=== PATIENT | female | born 1965 | race Caucasian/White ===

== ENCOUNTER 2022-10-03 18:58 | Emergency (ER) | payer OTHER, SELFPAY ==
[2022-10-03 19:07] VITALS: BP 189/101; PULSE 61; RESP 18; TEMP 36.4; O2SAT 98
--- NOTE | 2022-10-03 19:16 | ED_ITS ---
HPI - Extremity Problem General: Chief complaint: Extremity Injury, Upper Stated complaint: right pinky injury Time Seen by Provider: 10/03/22 19:15 History of Present Illness: Patient is a 57-year-old female who comes to the ED with left hand pinky injury. Injury occurred a couple hours prior to arrival. Patient says she was outside and going to step up into her shed. The concrete block that acts as a step to step up into shed shifted when she stepped on it and she fell off to the side. She was able to catch herself on the door door frame with her left hand which caused injury to pinky finger. She has 5 out of 10 pain in her pinky finger and it is laterally dislocated at PIP joint. No head trauma or loss of consciousness. Denies any other injury. Patient took a tramadol at around 3:00 PM today. Associated symptoms: Deny chest pain, fever(s) or rash Review of Systems Const: Denies: fever(s), chills or fatigue Eyes: Denies: change in vision or eye discomfort ENMT: Denies: throat pain, odynophagia, nasal discharge or nasal congestion Card: Denies: chest pain, palpitations, edema, swelling of feet/ankles, dyspnea on exertion or orthopnea Resp: Denies: dyspnea, productive cough or non-productive cough GI: Denies: abdominal pain, nausea, vomiting, diarrhea, constipation or hematochezia : Denies: flank pain, dysuria or hematuria Musc: Reports: extremity pain (Left hand-pinky finger); Denies: neck pain, back pain or extremity swelling Skin/Breast: Denies: rash or new lesions Neuro: Denies: headache(s), numbness in extremities or weakness in extremities [facility] ED PFSH: Medical History No pertinent family history No pertinent past medical history Physical Exam Const: COMMON NORMALS: patient oriented x3 and alert HENMT: COMMON NORMALS: normocephalic HEAD & SCALP: normocephalic MOUTH: Normal oral and palatal mucosa present THROAT: posterior oropharynx normal and uvula midline Neck/C-Spine: COMMON NORMALS: supple GENERAL: Yes normal visual inspection Resp: COMMON NORMALS: normal respiratory effort, No retractions, No use of accessory muscles and clear to auscultation bilaterally AUSCULTATION: clear to auscultation bilaterally Cardio: COMMON NORMALS: regular rate, regular rhythm, S1 normal heart sound present, S2 normal heart sound present, No gallops present (Cardio), No clicks present (Cardio), No murmurs present (Cardio) and Peripheral pulses 2+ throughout RATE: regular rate RHYTHM: regular rhythm HEART SOUNDS: S1 normal heart sound present and S2 normal heart sound present PERIPHERAL PULSES: Peripheral pulses 2+ throughout GI: COMMON NORMALS: Normal to inspection, nondistended, normoactive bowel sounds present, Soft to palpation, non-tender and no masses PALPATION: Yes Soft to palpation : COMMON NORMALS: Yes no CVA tenderness BLADDER/KIDNEY EXAM: Yes no CVA tenderness Back/Pelvis: COMMON NORMALS: no CVA tenderness Extremity: NARRATIVE EXTREMITY EXAM: Left hand?fifth digit?deformity seen. Lateral dislocation at PIP joint. Neurovascular intact distally. Cap refill normal less then 2 seconds. Neuro: COMMON NORMALS: patient oriented x3 SENSORIUM/ORIENTATION: Yes alert GAIT: Yes Normal gait present Skin: GENERAL SKIN EXAM: dry skin Procedures Nerve Block Nerve Block 1: Time out performed: Yes Local Anesthetic: lidocaine 2% Amount of anesthesia used (mL): 5 Side: left Nerve Blocks: digital (Fifth digit) Procedure Successful: Yes Patient Tolerated Procedure: well Complications: none Orthopedic Joint Reduction Joint #1: Time Out Performed: Yes Side: left Joint Reduction Location: finger (Fifth finger) Analgesia: nerve block (Lidocaine 2% digital block) Amount of anesthesic used (mL): 5 Technique used: direct manipulation Post-reduction neuro exam: intact Post-reduction vascular: intact Post Reduction X-Ray Obtained: Yes Post Reduction X-Ray Results: reduced Splint Applied: Yes (Henrik tape) Patient Tolerated Procedure: well Course Vital Signs: Vital signs: Vital Signs Temperature 97.5 F L 10/03/22 19:07 Pulse Rate 48 L 10/03/22 20:41 Respiratory Rate 16 10/03/22 20:41 Blood Pressure 164/74 10/03/22 20:41 Pulse Oximetry 98 10/03/22 20:41 Oxygen Delivery Me thod Room Air 10/03/22 19:36 MDM - Extremity (Nontraumatic) Medical Decision Making Patient is a 57-year-old female who comes to the ED with left hand pinky injury. Injury occurred a couple hours prior to arrival. Patient says she was outside and going to step up into her shed. The concrete block that acts as a step to step up into shed shifted when she stepped on it and she fell off to the side. She was able to catch herself on the door door frame with her left hand which caused injury to pinky finger. She has 5 out of 10 pain in her pinky finger and it is laterally dislocated at PIP joint. No head trauma or loss of consciousness. Denies any other injury. Patient took a tramadol at around 3:00 PM today. Vital stable. Left hand?fifth digit?deformity seen. Lateral dislocation at PIP joint. Neurovascular intact distally. Cap refill normal less then 2 seconds. X-ray of left hand shows dislocation of fifth digit PIP joint. Lidocaine 2% was used for digital block. Finger dislocation was reduced using manual manipulation. Postreduction x-rays showed successful reduction of dislocation of fifth joint. Patient was put in a finger splint and I placed an order with case management for patient to be referred to Ortho for follow-up. Return to ED precautions given. Patient understood and agreed with plan. Lab Data Radiology Impressions Hand X-Ray 10/03/22 20:06 IMPRESSION: Successful reduction of the dislocation at the 5th PIP joint space. Discharge Plan Discharge Patient Disposition: Home Clinical Impression: Dislocation of finger Qualifiers: Encounter type: initial encounter Qualified Code(s): S63.259A - Unspecified dislocation of unspecified finger, initial encounter Condition: Stable Discharge Orders: Discharge ED (Routine); Ordered 10/03/22 Ordered By: Lorne Tello Referrals: Carlos Alberto Dalton RN [Referring] - Discharge Diet: Regular Discharge Activity: Limit activity as instructed Patient Instructions: Dislocation - Finger Activity Restrictions/Additional Instructions: Follow-up with medical provider as directed. Case management should be contacted in the next several days to set up an appoint with Ortho for follow-up on finger dislocation. Continue taking all home medications as previously prescribed. You can wear finger splint, but after 2 days you can take finger out of splint and do some range of motion exercises and it throughout the day. Return to the ER or your medical provider if condition worsens. Please read and understand discharge instructions. Thank you for choosing [facility] for your healthcare needs today. Please realize this is an emergency room and that we are providing you with a medical screening exam and this may not be complete and all inclusive of all the testing and or work up that you may need to determine your ailment or severity of your illness. It is very important that you follow up as instructed or that you return to the Emergency Department should you have concerns or if your condition changes or worsens in any way. Coding Level of Care Code ED [employer] Worker for Nila Giraldo
--- NOTE | 2022-10-03 19:24 | XRR_ITS ---
PROCEDURE INFORMATION: Exam: XR Left Hand Exam date and time: 10/03/2022 7:25 PM Age: 57 years old Clinical indication: Injury or trauma; Fall; Dislocation; Little finger; Patient HX: Patient tripped and fell against door at home. Obvious deformity to left 5th digit. ; Additional info: Left hand pinky injury TECHNIQUE: Imaging protocol: Radiologic exam of the left hand. Views: 3 or more views. COMPARISON: No relevant prior studies available. FINDINGS: Bones/joints: Dislocation of the 5th PIP joint space. No evidence of fracture. Soft tissues: Normal. XR/XR hand LT min 3V* [id number] IMPRESSION: Dislocation of the 5th PIP joint space.
[2022-10-03 19:36] VITALS: BP 196/118; PULSE 57; RESP 16; O2SAT 94
--- NOTE | 2022-10-03 20:06 | XRR_ITS ---
PROCEDURE INFORMATION: Exam: XR Left Hand Exam date and time: 10/03/2022 8:16 PM Age: 57 years old Clinical indication: Injury or trauma; Fall; Other: Lt pinky; Dislocation; Left; Little finger; Injury details: Post red; Additional info: Post reduction xrays TECHNIQUE: Imaging protocol: Radiologic exam of the left hand. Views: 3 or more views. COMPARISON: CR XR hand LT min 3V* [id number] 10/03/2022 7:25 PM FINDINGS: Bones/joints: Successful reduction of the dislocation at the 5th PIP joint space. Negative for fracture. Soft tissues: Normal. XR/XR hand LT min 3V* [id number] IMPRESSION: Successful reduction of the dislocation at the 5th PIP joint space.
[2022-10-03] MEDS: lidocaine 2% INJ 20 mL 10 ML INJECTION (20:29)
[2022-10-03 20:41] VITALS: BP 164/74; PULSE 48; RESP 16; O2SAT 98
--- NOTE | 2022-10-06 08:41 | DCPLANNER ---
Addendum entered by Katie Cisse 10/20/22 11:24: Patient had a follow up appointment at ortho - patient did attend appointment. Addendum entered by Katie Cisse 10/08/22 14:27: Patient has a follow up appointment scheduled for Thursday, October 13, 2022 at 9:[address] Mcrae. Original Note: international sourcing manager had message to schedule a follow up appointment for patient with ortho. international sourcing manager sent patients information to the front office staff at ortho. Patients information will be printed and reviewed. Clinic will call patient with appointment information.
== END 2022-10-03 20:43 | disposition home or self-care (01) ==
PROVIDERS: Emergency Provider Physician Assistant; PCP Family Medicine
DX: S63.287A Dislocation of proximal interphalangeal joint of left little finger, initial encounter (principal); W10.8XXA Fall (on) (from) other stairs and steps, initial encounter
CPT/HCPCS: 26770; 29130; 73130; 99283

== ENCOUNTER → 2022-10-13 09:40 | Outpatient (BNVA) | payer OTHER, SELFPAY | PROVIDERS: PCP Family Medicine; Referring Provider Physician Assistant; Visit Provider Specialist | DX: S63.287A Dislocation of proximal interphalangeal joint of left little finger, initial encounter (principal); W17.89XA Other fall from one level to another, initial encounter | CPT/HCPCS: 73130 ==

== ENCOUNTER 2022-10-13 11:55 | Outpatient (CLI) | payer OTHER, SELFPAY | END 2022-10-13 11:56 | disposition home or self-care (01) | LOC: SPT 11:56 | PROVIDERS: PCP Family Medicine; Visit Provider Specialist | DX: Z46.89 Encounter for fitting and adjustment of other specified devices (principal); M79.642 Pain in left hand | CPT/HCPCS: 97760; L3807 ==